=== PATIENT | female | born 1975 | race Caucasian/White ===

== ENCOUNTER 2023-04-10 15:13 | Emergency (ER) | payer OTHER, SELFPAY ==
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
[2023-04-10 15:48] VITALS: BP 179/113; PULSE 92; RESP 16; TEMP 36.8; O2SAT 98; BMI 22.9
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
--- NOTE | 2023-04-10 16:08 | PC.NURSE ---
called pt back to waiting room - pt in xray at this time.
[2023-04-10] MEDS: Lidocaine 4 % Patch ADH..PATCH 1 PATCH TRANSDERMA (16:44)
[2023-04-10] MEDS: Ketorolac Tromethamine 30 MG/ML VIAL IM (16:44)
[2023-04-10 16:47] VITALS: BP 173/104
--- NOTE | 2023-04-10 16:48 | PC.NURSE ---
pt medicated per provider order. pt awaiting xray results. provide aware of pt being hypertensive.
--- OUTSIDE RECORDS SUMMARY | 2023-04-10 16:54 | XMS_ITS | Continuity of Care Document ---
Author Name Unknown Organization [facility] Address [address] [place] [address]- Care Team Providers Care Management Planner Name Role Phone Slick FIELDS, Jarett Brody Primary Care Physician Encounter [facility] Date(s): 03/02/23 - 04/01/[address] [address]- Attending Physician: Favio Omalley Admitting Physician: AdmFavio chacon Referring Physician: AdmtrFavio Allergies, Adverse Reactions, Alerts Substance Reaction Severity Status Vicodin Active Medications omeprazole 20 mg oral delayed release tablet 1 tablet = 20 mg, By Mouth, Daily, # 60 tablet, 0 Refills, Maintenance, 12/12/16 16:31:14, EC Tablet Start Date: 12/12/16 Stop Date: 02/10/17 Status: Ordered Social History Social History Type Response Smoking Status Current every day sm oker; Other: 7 CIGARRETTS PER DAY; entered on: 12/12/16 Sex Patient Care team information Care Team Personnel Name: Jarett Kruger MD Position: S Physician - Oncology Member Role: PCP Address: Address: [address] [place] [address] [place] [address]- Care Team Related Persons Name: BENJAMIN STEVENS Address: home [address] [place] [address]
== END 2023-04-10 17:03 | disposition home or self-care (01) ==
PROVIDERS: Emergency Provider Internal Medicine; PCP Internal Medicine
DX: S39.012A Strain of muscle, fascia and tendon of lower back, initial encounter (principal); V43.52XA Car driver injured in collision with other type car in traffic accident, initial encounter; Y93.9 Activity, unspecified; Y92.410 Unspecified street and highway as the place of occurrence of the external cause; Y99.9 Unspecified external cause status
CPT/HCPCS: 72100; 96372; 99284; J1885

== ENCOUNTER 2024-06-07 16:20 | Outpatient (AMB) | payer OTHER, SELFPAY ==
--- NOTE | 2024-06-07 16:21 | MHC.OFFWIV ---
Intake Vital Signs 06/07/24 16:22 Height 5 ft 2 in Weight 133 lb BMI 24.3 BP 130/80 Blood Pressure Location Lt brachial Position Sitting Pulse 100 Pulse Source Pulse Oximeter Temp 98.9 F Temp Source Oral Pulse Oximetry (%) 97 Oxygen Delivery Method Room Air Intake Visit Reasons: [employer]PER[employer] SOB Intake Note: Pt is here today for a walk in visit. Pt c/o SOB for past 4 months. Pt states that she has asthma. Allergies hydrocodone [From VICODIN] Allergy (Unknown, Verified 06/07/24 16:25) RASH Do you need a note to return to daycare/school/sports/work: No HPI HPI Comments History of Present Illness Details History of Present Illness - The patient is a 49-year-old female presenting with shortness of breath. - Experiences with progressive shortness of breath over a year, worsening in the last four months. - Symptoms occur irrespective of physical activity, occasionally intensifying with walking and cold exposure. - Smokes approximately three cigarettes daily over a duration of 35 years. - Employs a CPAP machine and has minimal response to Ventolin inhaler. - Lack of recent fever, cough, or illness contacts reported. - Utilizes a nebulizer without required medication currently and is pending pulmonary function testing. Physical Exam General: Cooperative, healthy appearing, comfortable, no acute distress and well developed Orientation: Patient oriented x3 Limitations: No limitations Head: Normal to inspection Ears: Hearing grossly normal bilaterally Nose: Normal external nose present Face and sinus: Normal facial exam Eyes: Appearance normal, both eyes and all related structures Neck: Normal visual inspection and Yes full ROM Respiratory: Normal respiratory effort and able to speak in complete sentences. Clear to auscultation bilaterally, no wheezing. Cardiovascular: Regular rate and rhythm. Normal S1 and S2. Skin: No rashes or lesions noted Neuro: Patient oriented x3 Extremities: Normal to inspection [facility] Social History Alcohol intake: current Alcohol intake frequency: holidays/special occasions only Review of Systems Const All systems reviewed & are unremarkable except as noted in HPI and below Physical Exam Vital Signs: Last Vital Signs Temp 98.9 F 06/07/24 16:22 Pulse 100 06/07/24 16:22 BP 130/80 06/07/24 16:22 Pulse Ox 97 06/07/24 16:22 Oxygen Delivery Method Room Air 06/07/24 16:22 BMI result Body Mass Index 24.3 Assessment & Plan Assessment & Plan (1) Shortness of breath: Code(s): R06.02 - Shortness of breath Plan: The management of the patient's respiratory symptoms involves prescribing DuoNeb for nebulizer use up to three times a day as needed for relief from shortness of breath. Follow-up with her primary care physician will determine the need for ongoing asthma maintenance medication. The patient should wear a mask in cold environments to help alleviate symptoms associated with cold air exposure. A pulmonary function test has been arranged by her PCP to evaluate lung function and assist in differentiating between asthma and possible COPD. The patient is encouraged to avoid cold air exposure to minimize symptom exacerbation, and feedback from the current intervention will guide the subsequent management plan. Patient was informed and verbally consented to the use of an ambient scribe for clinic note documentation during this visit. Medications: New ipratropium-albuterol 0.5 mg-3 mg(2.5 mg base)/3 mL 3 mL inhalation Q6-8H PRN 90 mL 0RF wheezing Coding Level of Care Code New Pt Level 3 (10109) Diagnoses Shortness of breath R06.02
[2024-06-07 16:22] VITALS: BP 130/80; PULSE 100; TEMP 37.2; O2SAT 97; BMI 24.3
== END 2024-06-07 16:50 | disposition home or self-care (01) ==
PROVIDERS: Visit Provider Physician Assistant
DX: R06.02 Shortness of breath (principal)

== ENCOUNTER → 2024-06-07 16:20 | Outpatient (BNVA) | payer OTHER, SELFPAY | PROVIDERS: Visit Provider Nurse Practitioner Family | DX: R06.02 Shortness of breath (principal) | CPT/HCPCS: 99202 ==